=== PATIENT | male | born 1955 | race Caucasian/White ===

== ENCOUNTER 2016-09-06 09:18 | Day surgery (SDC) | payer OTHER ==
[~2016-09-06] VITALS: Ht 180.3 cm; Wt 102.1 kg
[2016-09-06] MEDS ORDERED: MIDAZOLAM 2 MG/2 ML VIAL ONE (09:47)
[2016-09-06] MEDS ORDERED: fentaNYL 0.05 MG/ML VIAL ONE (09:47)
[2016-09-06] MEDS ORDERED: MIDAZOLAM 2 MG/2 ML VIAL IVP ONE (10:40)
[2016-09-06] MEDS ORDERED: fentaNYL 0.05 MG/ML VIAL IVP ONE (10:40)
== END 2016-09-06 11:20 | disposition home or self-care (01) ==
LOC: MDS 09:18 → MMU 09:21 → MDS 11:20
PROVIDERS: ATTEND Surgery
DX: R10.12 Left upper quadrant pain (principal); I10 Essential (primary) hypertension; E11.9 Type 2 diabetes mellitus without complications; E66.9 Obesity, unspecified
CPT/HCPCS: 36415; 43239; 82948; 86677; J2250; J3010; J7030